=== PATIENT | male | born 1995 | race Two or more races ===

== ENCOUNTER 2017-05-20 11:54 | Emergency (ER) | payer BC ==
[2017-05-20] MEDS ORDERED: LIDOCAINE 2% INJ-PF (20 MG/ML) 2 ML AMPUL INJ ONE (13:21)
[2017-05-20] MEDS ORDERED: LIDOCAINE 1% INJ-PF (10 MG/ML) 30 ML SDV INJ ONE (13:49)
--- NOTE | 2017-05-20 14:38 | ER Document Report ---
ED Wound - General Chief Complaint: Laceration Stated Complaint: RIGHT HAND INJURY Time Seen by Provider: 05/20/17 13:19 Mode of Arrival: Ambulatory Information source: Patient TRAVEL OUTSIDE OF THE [place] IN LAST 30 DAYS: No - HPI Patient complains to provider of: Laceration - R little finger from washing dishes. TET- OOD - Related Data Allergies/Adverse Reactions: No Known Allergies Allergy (Unverified 05/20/17 12:00) Past Medical History - Social History Smoking Status: Never Smoker Cigarette use (# per day): No Chew tobacco use (# tins/day): No Smoking Education Provided: No Family History: None Review of Systems - Review of Systems Constitutional: No symptoms reported EENT: No symptoms reported Cardiovascular: No symptoms reported Respiratory: No symptoms reported Musculoskeletal: See HPI, Other - finger laceration -: Yes All other systems reviewed and negative Physical Exam - Vital signs Vitals: Temp Pulse Resp BP Pulse Ox 97.2 F 72 16 127/72 H 99 05/20/17 11:56 05/20/17 11:56 05/20/17 11:56 05/20/17 11:56 05/20/17 11:56 - General General appearance: Appears well In distress: None - Extremities Hand: Laceration - 2 cm laceration R little finger dorsal aspect proximal phalanx; flexor and extensor tendons intact; N/V intact ; FROM Course - Vital Signs Vital signs: Temp Pulse Resp BP Pulse Ox 97.2 F 72 16 127/72 H 99 05/20/17 11:56 05/20/17 11:56 05/20/17 11:56 05/20/17 11:56 05/20/17 11:56 Procedures - Laceration/Wound Repair Right Finger Time completed: 14:24 Wound's Depth, Shape: Linear Laceration pre-procedure: Sterile PPE donned, Betadine prep applied Anesthetic type: 1% Lidocaine Volume Anesthetic (mLs): 2 Wound explored: Clean Irrigated w/ Saline (mLs): 500 Wound Debrided: Minimal Wound Repaired With: Sutures Suture Size/Type: 4:0 Number of Sutures: 3 Layer Closure?: No Post-procedure wound care: Sterile dressing applied Discharge - Discharge Clinical Impression: Laceration of finger Qualifiers: Encounter type: initial encounter Finger: little finger Damage to nail status: without damage Foreign body presence: without foreign body Laterality: right Qualified Code(s): S61.216A - Laceration without foreign body of right little finger without damage to nail, initial encounter Condition: Stable Disposition: HOME, SELF-CARE Instructions: Antibiotic Ointment Protection ([facility]), Laceration Care ([facility]), Tetanus Immunization Given ([facility]), Soap Cleansing ([facility]) Additional Instructions: rst, suture d/c in 7 days, return if worse Referrals: ALMA HURLEY MD [ACTIVE STAFF] - Follow up as needed
[2017-05-20] MEDS ORDERED: DIPH/PERTUSS(ACELL)/TETANUS VAC/PF 0.5 ML SYR (>=10YO) IM ONE (14:56)
[2017-05-20 15:42] VITALS: BP 120/60
== END 2017-05-20 15:35 | disposition home or self-care (01) ==
LOC: ER 11:54
PROC: 0HQFXZZ Repair Right Hand Skin, External Approach (ICD-10-PCS; principal; 2017-05-20)
DX: S61.216A Laceration without foreign body of right little finger without damage to nail, initial encounter (principal); W45.8XXA Other foreign body or object entering through skin, initial encounter; Y93.G1 Activity, food preparation and clean up
CPT/HCPCS: 99282; 90471; 90715; 12001; J3490